=== PATIENT | female | born 1955 | race Caucasian/White ===

== ENCOUNTER 2021-08-20 20:52 | Emergency (ER) | payer MEDICARE ==
[2021-08-20] MEDS ORDERED: NS 0.9% w/ 20 MEQ KCL 1,000 ML BAG IV ONE (20:53)
[2021-08-20] MEDS ORDERED: Ondansetron PF 4 MG/2 ML Vial ONE (21:09)
[2021-08-20 21:51] LABS: Hemoglobin 15.5 g/dL (12.0-16.0); Mean Corpuscular HGB CONC 34.2 g/dL (32.0-36.0); Mean Corpuscular Hemoglobin 32.2 pg (27.0-31.0); Mean Platelet Volume 7.5 fL (7.4-10.4); Platelet Count 276 thou/uL (130-400); RBC Distribution Width 12.1 % (11.5-14.5); Red Blood Cell (RBC) Count 4.83 mill/uL (4.20-5.40); White Blood Cell (WBC) Count 5.7 thou/uL (4.8-10.8)
[2021-08-20] MEDS ORDERED: Lidocaine Viscous Sol 2% 15 ml UD Cup ONE ×2 (22:05→22:07)
[2021-08-20] MEDS ORDERED: Famotidine/PF 20 mg/2ml Vial ONE (22:05)
[2021-08-20] MEDS ORDERED: Mag-Al Plus 1200 MG/1200 MG/120 MG/30 ML UDCUP ONE ×2 (22:05→22:07)
[2021-08-20 22:12] LABS: ALT (SGPT) 17 U/L (8-55); AST (SGOT) 22 U/L (5-34); Albumin 4.1 g/dL (3.4-4.8); Alkaline Phosphatase 98 U/L (40-110); Anion Gap 22 mmol/L (10-20); BUN (Urea Nitrogen) 26 mg/dL (9.8-20.1); Bilirubin, Total 0.4 mg/dL (0.2-1.2); Calc. Creatinine Clearance 0 mL/min (70-130); Calcium 9.5 mg/dL (7.8-10.44); Carbon Dioxide 26 mmol/L (23-31); Chloride 92 mmol/L (98-107); Globulin 3.9 g/dL (2.4-3.5); Glucose 134 mg/dL (80-115); Sodium 137 mmol/L (136-145)
[2021-08-20 22:29] LABS: Band 41 % (5-11); Large Platelets SLIGHT; Lymphocytes 8 % (21-51); MDiff Complete? YES; Metamyelocyte 15 % (0-0); Monocytes 3 % (0-10); Myelocyte 2 % (0-0); Neutrophil 29 % (42-75); Platelet Morphology Comment Appears Adequate; RBC Morphology Normal
[2021-08-20 22:33] LABS: Potassium 2.9 mmol/L (3.5-5.1)
[2021-08-20 22:34] LABS: Lipase Less than 4 U/L (8-78)
[2021-08-21] MEDS ORDERED: Diphenoxylate HCl/Atropine Tablet PO SCH (00:15)
[2021-08-21] MEDS ORDERED: Diphenoxylate HCl/Atropine Tablet ONE (00:51)
== END 2021-08-21 02:03 | disposition short-term general hospital (02) ==
LOC: BURERS 20:52
DX: R11.2 Nausea with vomiting, unspecified (principal); R94.31 Abnormal electrocardiogram [ECG] [EKG]; R19.7 Diarrhea, unspecified; E87.6 Hypokalemia; J44.9 Chronic obstructive pulmonary disease, unspecified; K21.9 Gastro-esophageal reflux disease without esophagitis; F17.200 Nicotine dependence, unspecified, uncomplicated
CPT/HCPCS: 36415; 80053; 83605; 83690; 84484; 85025; 93005; 96361; 96365; 96366; 96375; J2405; J3480; S0028